=== PATIENT | male | born 1985 | race Caucasian/White ===

== ENCOUNTER 2024-01-06 12:33 | Emergency (ER) | payer BC, OTHER ==
[2024-01-06 12:39] VITALS: BP 131/84; PULSE 67; RESP 18; TEMP 98.4; BMI 28.2
[2024-01-06] MEDS ORDERED: LIDOCAINE 4% PATCH TP ONE (13:37)
[2024-01-06] MEDS ORDERED: KETOROLAC TROMETHAMINE 30 MG/1 ML VIAL ONE (13:37)
[2024-01-06] MEDS: LIDOCAINE 5% TOPICAL PATCH TP ONE (13:42)
[2024-01-06] MEDS: KETOROLAC TROMETHAMINE 30 MG/1 ML VIAL IM ONE (13:42)
[2024-01-06] MEDS ORDERED: LIDOCAINE PATCH REMOVAL MC ONE (22:00)
== END 2024-01-06 14:13 | disposition home or self-care (01) ==
LOC: JER 12:33
PROC: 3E0133Z Introduction of Anti-inflammatory into Subcutaneous Tissue, Percutaneous Approach (ICD-10-PCS; principal; 2024-01-06)
DX: M94.0 Chondrocostal junction syndrome [Tietze] (principal)
CPT/HCPCS: 71046-TC-FY; 93005; 93010; 99284-25